=== PATIENT | male | born 2000 | race Caucasian/White ===

== ENCOUNTER 2021-03-03 15:34 | Outpatient (CLI) | payer OTHER, SELFPAY ==
[2021-03-03 16:26] LABS: SARS-CoV-2 Ag Negative (Negative)
== END 2021-03-03 15:35 | disposition home or self-care (01) ==
LOC: CHSLAB 15:44
PROVIDERS: PCP Physician Assistant; Visit Provider Physician Assistant
DX: Z20.822 Contact with and (suspected) exposure to COVID-19 (principal)
CPT/HCPCS: 87426; C9803

== ENCOUNTER 2022-02-24 11:40 | Emergency (ER) | payer OTHER, SELFPAY ==
--- NOTE | ~2022-02-24 | XR_ITS ---
EXAMINATION: XR shoulder RT min 2V DATE: 02/24/2022 12:16 INDICATION: Right shoulder injury. TECHNIQUE: 4 views of right shoulder were obtained. COMPARISON: Shoulder radiographs 09/23/2011. 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 Coracoclavicular interval is normal. No fr acture. 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 Glenohumeral joint is normal. IMPRESSION: 1. No acute fracture. Reviewed, dictated and finalized at location A. IMPRESSION: 1. No acute fracture.
[2022-02-24] MEDS: KETOROLAC (*BKC) 60 MG/2 ML VIAL IM (12:07)
[2022-02-24 12:09] VITALS: BP 128/90; PULSE 80; RESP 20; TEMP 36.6; O2SAT 98
--- NOTE | 2022-02-24 12:37 | ED.UPPEXIN ---
HPI - Extremity Injury (Upper) General Chief Complaint: Extremity Injury, Upper Stated Complaint: SHOULDER PAIN Time Seen by Provider: 02/24/22 12:37 Source: patient Mode of arrival: ambulatory Limitations: no limitations History of Present Illness HPI narrative: this is a 21-year-old gentleman that presents shoulder injury after he fell on Monday causing some pain and discomfort in the right shoulder has good range of motion no bruising no swelling no numbness or tingling. complaint: injury to: right Onset (ago): day(s) Other Extremity Injury: Right: shoulder ( pain) Other injuries: none Handedness: right Place: home Severity: mild Severity scale (1-10): 4 Related Data Allergies Allergy/AdvReac Type Severity Reaction Status Date / Time No Known Allergies Allergy Verified 02/24/22 12:08 Review of Systems Review of Systems: All systems reviewed & are unremarkable except as noted in HPI and below PMFSH Past Medical History Medical History Patient denies medical problems Exam Const: General: no acute distress and alert Orientation/consciousness: patient oriented x3 HENMT: Head: normal to inspection Eyes: Conjunctivae: conjunctivae normal Pupils: Equal, round and reactive pupils present Neck: Neck: normal visual inspection Chest: Chest palpation & inspection: normal inspection of the chest Resp: Effort & Inspection: normal respiratory effort Auscultation: clear to auscultation bilaterally Cardio: Rate: regular rate Rhythm: regular rhythm GI: GI Palp: Yes Soft to palpation Percussion: Yes normal to percussion Back/Spine/Pelvis: Back: no CVA tenderness Skin: General skin exam: normal color Rashes: no rashes Neuro: General: patient oriented x3, moves all extremities, no meningeal signs and no focal motor deficits Extrem: Other: right shoulder tenderness bicipital area with no bruising has good range of motion. Psych: Mental Status: mental status grossly normal Affect: normal affect Course Course Emergency Course: X-rays reviewed with patient patient states that Toradol has improved his pain level. Vital Signs Vital signs: Vital Signs Temperature 36.6 C 02/24/22 12:09 Pulse Rate 80 02/24/22 12:09 Respiratory Rate 20 02/24/22 12:09 Blood Pressure 128/90 02/24/22 12:09 Pulse Oximetry 98 02/24/22 12:09 Temperature 36.6 C 02/24/22 12:09 Pulse Rate 80 02/24/22 12:09 Respiratory Rate 20 02/24/22 12:09 Blood Pressure 128/90 02/24/22 12:09 Pulse Oximetry 98 02/24/22 12:09 Critical Care Time Critical Care Time Critical Care Time: No Discharge Plan Discharge Clinical Impression: Right shoulder strain Qualifiers: Encounter type: initial encounter Qualified Code(s): S46.911A - Strain of unspecified muscle, fascia and tendon at shoulder and upper arm level, right arm, initial encounter Patient Disposition: Home, Self-Care Condition: Stable Instructions: Antibiotic Form, Shoulder Sprain (ED) Additional Instructions: take medicine as prescribed and follow-up primary care physician if symptoms persist or worsen. Prescriptions: New naproxen 500 mg tablet 500 mg PO BID Qty: 10 RF: 0 Follow-up/Referrals: Elvia,DARIN Gann [Primary Care Provider] - Time of Disposition: 12:40
[2022-02-24 12:55] VITALS: BP 130/92; PULSE 63; RESP 20; TEMP 36.6; O2SAT 98
== END 2022-02-24 12:57 | disposition home or self-care (01) ==
PROVIDERS: Emergency Provider Emergency Medicine; PCP Physician Assistant
DX: S46.911A Strain of unspecified muscle, fascia and tendon at shoulder and upper arm level, right arm, initial encounter (principal); W19.XXXA Unspecified fall, initial encounter
CPT/HCPCS: 73030; 96372; 99283; J1885